=== PATIENT | male | born 1955 | race Caucasian/White ===

== ENCOUNTER 2019-03-12 11:19 | Outpatient (CLI) | payer BC, SELFPAY ==
--- NOTE | 2019-03-12 10:08 | DI.RAD_ITS ---
SYMPTOMS/DIAGNOSIS: LEFT KNEE PAIN STANDING ALIGNMENT: Standing AP views were performed from the pelvis through the ankles. The left knee shows severe degenerative changes of the medial femorotibial joint and varus angulation. There is an overall leg length discrepancy with the right femoral head projecting 13 mm superior to the right. The hip joint spaces show mild spurring but are well maintained. The ankle joints show medial spurring with no significant joint space narrowing. IMPRESSION: Severe degenerative changes in the medial femorotibial joint of the left knee and leg length discrepancy. LEFT KNEE: Weightbearing views were performed. Comparison is made with November,. There is now severe narrowing of the medial femorotibial joint with some flattening of the medial femoral condyle. There is periarticular spurring, increased from the previous exam. There is now varus angulation, as well as some lateral subluxation of the tibia with respect to the femur. There is spurring at the tibial spines, as well as patellofemoral joint. There are multiple small joint space loose bodies seen posterior to the femoral condyles. IMPRESSION: Interval worsening of degenerative changes of the medial femorotibial joint.
== END 2019-03-12 11:39 ==
PROVIDERS: PCP Family Medicine; Visit Provider Physician Assistant
DX: M25.562 Pain in left knee (principal)
CPT/HCPCS: 73560; 77073

== ENCOUNTER 2019-05-02 11:12 | Outpatient (CLI) | payer BC, SELFPAY ==
--- NOTE | 2019-05-02 10:31 | HPE_ITS ---
Assessment and Plan Assessment and plan (1) Primary osteoarthritis of left knee: Status: Chronic Assessment and plan: Plan: Educated patient and his on surgery covering surgical technique via models, recovery process, benefits and risks including but not limited to risk of infection, blood clot, damage to soft tissue/blood vessels/nerves in detail. After discussion patient gives verbal understanding of risks and elects to proceed with scheduling surgery. Patient had opportunity to have questions answered to their satisfaction. They will contact office if issues arise. Patient will continue to be scheduled for left total knee replacement with Dr. Tejeda. History of Present Illness Narrative: Mr. Leonard is a 63-year-old male who presents to clinic for pre- operative visit for scheduled left TKA. Original left knee pain started after a soccer injury ~30-40 years ago; denies any recent injury. Following his injuries he underwent 2 left knee arthroscopies by Dr. Alvarez with the second surgery approximately 30 years ago. He did get better after each surgery, but now over the last couple of years he has been experiencing worsening diffuse left knee p ain. Patient reports left knee pain is aggravated with all weightbearing activity. He continues to work in maintenance and has noticed increased difficulty with prolonged weightbearing, ascending as well as descending on ladders. States pain is most severely aggravated when descending on the ladder. He also has difficulty going up and down stairs, but it is not quite as bad as ladder. He rarely uses any OTC medication but will occasionally take Naproxen which helps slightly. Reports clicking with ROM; denies any locking sensation. Occasionally feels that the knee could give out when on the ladder; denies any falls. Due to his continued pain and known DJD he was offered surgical interven tion and elected to proceed. Pertinent Surgical Information Patient does have a listed severe allergy to penicillin. Upon discussion of allergy patient states he had a severe reaction when he was 8 years old after receiving penicillin. He is unable to report exact symptoms but recalls waking up in an ice bath at the hospital. Denies any other known drug allergies. Denies past medical history of: Hypertension, stroke, cardiac issues, angina, asthma, COPD, sleep apnea, renal issues, liver issues, hepatitis, gastrointestinal ulcers, bleeding disorders, seizures, migraines, anxiety, depression, diabetes, autoimmune disorders, thyroid issues Reports a reaction to the second left knee arthroscopy following anesthesia. Reports being beet red following the procedure ~30 years ago. Has had anesthesia since for endoscopy and colonoscopy without any issues. Denies prior complications from surgery or anesthesia. Review of Systems Constitutional Constitutional: Denies fever(s), Denies frequent falls and Denies headache(s) Eyes Eyes: Denies change in vision ENT Ears, Nose, Mouth, and Throat: Denies dizziness, Denies ear discharge, Denies headache(s), Denies epistaxis, Denies nasal discharge and Denies sore throat Cardiovascular Cardiovascular: Denies chest pain, Denies rapid heart rate, Denies irregular heart rhythm, Denies palpitations, Denies dyspnea, Denies dyspnea on exertion, Denies orthopnea, Denies paroxysmal nocturnal dyspnea and Denies slow heart rate Respiratory Respiratory: Denies cough, Denies dyspnea, Denies dyspnea on exertion and Denies wheezing Gastrointestinal Gastrointestinal: Denies abdominal pain, Denies melena, Denies hematochezia, Denies constipation, Denies diarrhea, Denies nausea and Denies vomiting Genitourinary Genitourinary: Denies hematuria, Denies dysuria and Denies urinary urgency Musculoskeletal Musculoskeletal: Reports as per HPI, Denies numbness and Denies tingling Neurologic Neurologic: Denies dizziness, Denies frequent falls, Denies headache(s), Denies numbness and Denies tingling Psychiatric Psychiatric: Denies anxiety and Denies depression Endocrine Endocrine: Denies palpitations Allergic/Immunologic Allergic/Immunologic: Denies wheezing [facility] Medical History Gardner's esophagus without dysplasia GERD (gastroesophageal reflux disease) Hearing loss (Chronic) slight Hiatal hernia History of colon polyps Obesity Surgical History EGD - MAC (01/15/17) Status post arthroscopy of knee (Acute) Left X2 Status post colonoscopy (Acute) Family History Mother No problems noted. Father Diabetes Heart disease Brother Personal history of malignant neoplasm PROSTATE Grandfather , UNKNOWN at age 50. No problems noted. Grandfather , UNKNOWN No problems noted. Grandmother Diabetes Grandmother , UNKNOWN No problems noted. Sister No problems noted. Sister No problems noted. Sister No problems noted. Sister No problems noted. Brother No problems noted. Son No problems noted. Son No problems noted. Daughter No problems noted. Social History (Updated 05/02/19 @ 10:45 by Nereyda Garcia) Smoking/Tobacco Use Status: Never Alcohol Intake: current Alcohol Intake frequency: a few times a month Alcohol type: wine and hard liquor Drug use: Never Substance use type: does not use Caregiver/Support person: No Household members: spouse Housing: house Do you need help understanding health information?: Rarely Pets and animals: Yes Pets and animals: cat(s), dog(s) and snake(s) Sexually active: Yes Do you think of yourself as: straight/heterosexual Current gender identity: male What is your relationship status?: How often do you talk on the phone with friends or family?: twice per week How often do you get together with friends or relatives?: three or more times per week How often do you attend hinduism or hoahaoism services?: decline to answer Do you belong to any clubs or organized social groups?: no Panel score (0-1 are the most socially isolated patients): 2 What type of physical activity do you participate in: walking Duration: 15-30 minutes/day Frequency: 5-6 times per week Alexa/Rastafari: None Special alexa needs: No Seatbelt use: sometimes Helmet use: No Drive intox or ride w/intox hazardous materials tanker driver: No Do you feel safe in your relationship?: Yes Meds Home Medications and Allergies Home Medications Medication Instructions Recorded Confirmed Type triamcinolone acetonide 0 TOPICAL HS #60 ml 11/24/16 05/02/19 History esomeprazole magnesium 40 mg 40 mg PO DAILY #90 tab-cap 12/03/18 05/02/19 Rx capsule,delayed release naproxen sodium [Aleve] 220 mg PO Q12H PRN 05/02/19 05/02/19 History Allergies Allergy/AdvReac Type Severity Reaction Status Date / Time Penicillins Allergy Severe Unverified 05/02/19 10:43 Exam Const General: cooperative and no acute distress [facility] Head: normal to inspection, normocephalic and atraumatic Ears: external ears normal General nose exam: external nose normal and no nasal discharge Face and sinus: face symmetric Mouth: oral mucosae normal, lip normal, tongue normal and moist mucous membranes Teeth and gingiva: dentition normal Throat: posterior oropharynx normal Eyes General: appearance normal, both eyes and all related structures Pupils: PERRL EOM: EOM intact bilaterally Neck Neck: trachea midline Carotids: normal carotid upstroke Lymphatic: no lymphadenopathy noted Resp Effort & Inspection: normal respiratory effort and able to speak in complete sentences Auscultation: clear to auscultation bilaterally, no rales, no rhonchi and no wheezes Cardio Heart Sounds: S1 normal, S2 normal and no murmurs Pulses: radial pulses present bilaterally GI Palpation: soft, no hepatosplenomegaly and nontender Auscultation: normal bowel sounds Skin General skin exam: no rashes or lesions noted Results Labs Result diagrams: 05/02/19 11:59 05/02/19 11:59
[2019-05-02 12:08] LABS: HCT 44.8 % (40.0-50.0); HGB 15.1 g/dL (13.5-17.5); Mean Corp. HGB Concentration 33.7 g/dL (32.0-36.0); Mean Corpuscular Hemoglobin 26.9 pg (27.0-33.0); Mean Corpuscular Volume 79.9 fL (80-95); Mean Platelet Volume 9.4 fL (8.0-11.0); Platelet Count 245 x1000/uL (130-400); RBC 5.61 m/cumm (4.50-6.00); RBC Distribution Width 15.1 % (11.8-14.1); White Blood Cell Count 7.33 k/cumm (4.4-10.8)
[2019-05-02 13:07] LABS: Anion Gap 11.5 mmol/L (3-11); BUN 17 mg/dL (7-18); CO2 25.5 mmol/L (21.0-32.0); CREATININE 0.72 mg/dL (0.70-1.30); Calcium 8.7 mg/dL (8.5-10.1); Chloride 106 mmol/L (98-107); Glucose 80 mg/dL (70-100); Potassium 4.3 mmol/L (3.5-5.1); Sodium 143 mmol/L (136-145)
== END 2019-05-02 11:32 ==
PROVIDERS: PCP Family Medicine; Visit Provider Student in an Organized Health Care Education/Training Program
DX: M25.562 Pain in left knee (principal); M17.12 Unilateral primary osteoarthritis, left knee; K21.9 Gastro-esophageal reflux disease without esophagitis; Z01.818 Encounter for other preprocedural examination; Z01.812 Encounter for preprocedural laboratory examination
CPT/HCPCS: 36415; 80048; 85027; NC

== ENCOUNTER 2019-05-07 07:02 | Observation (INO) | payer BC, SELFPAY ==
[2019-05-07] VITALS (14 sets, daily range): BP systolic 53–149; BP diastolic 35–100; PULSE 58–88; RESP 14–22; TEMP 36.2–37.4; O2SAT 94–98
[2019-05-07] MEDS: Acetaminophen 500 MG TAB 1000 MG PO ×3 (07:59→19:48)
[2019-05-07] MEDS: Gabapentin 300 MG CAP PO (08:00)
[2019-05-07] MEDS: Celecoxib 200 MG CAP 400 MG PO (08:00)
[2019-05-07] MEDS: Lactated Ringers 1,000 ML 80 ML IV ×3 (08:25→14:20)
[2019-05-07] MEDS: Bupivacaine 0.25% Pres-Free 10 ML VIAL (09:11)
[2019-05-07] MEDS: ceFAZolin 2 GM/50 ML BAG IVPB (09:45)
[2019-05-07] MEDS: Ketorolac 30 MG/ML VIAL (11:18)
[2019-05-07] MEDS: Bupivacaine 0.25% Pres-Free 30 ML VIAL (11:18)
[2019-05-07] MEDS: Normal Saline 20 ML VIAL (11:18)
[2019-05-07 13:15] LABS: HCT 40.7 % (40.0-50.0); HGB 13.6 g/dL (13.5-17.5)
[2019-05-07 13:25] LABS: Anion Gap 8.8 mmol/L (3-11); BUN 26 mg/dL (7-18); CO2 26.2 mmol/L (21.0-32.0); CREATININE 0.83 mg/dL (0.70-1.30); Calcium 8.3 mg/dL (8.5-10.1); Chloride 107 mmol/L (98-107); Glucose 141 mg/dL (70-100); Potassium 5.2 mmol/L (3.5-5.1); Sodium 142 mmol/L (136-145)
[2019-05-07 13:33] LABS: Troponin I < 0.05 ng/mL (0.00-0.06)
[2019-05-07] MEDS: Normal Saline Flush 10 ML SYR IV (14:16)
--- NOTE | 2019-05-07 14:35 | NUR.NOTE ---
Nursing Note: Patient arrived to med/surg from PACU via stretcher and admitted to room 214 at 1402
--- NOTE | 2019-05-07 16:13 | IN_ITS ---
Date of service: 05/07/19 Time of Service: 15:23 PT Notes Inpatient Physical Therapy Evaluation Date: 05/07/2019 Referring Doctor: Ronald Tejeda MD PT Orders: PT CONSULT: s/p L TKA Precautions: Fall. Standard. WBAT on R LE. Patient Profile/Admitting Diagnosis: Patient is a 63-year -ld man s/p L TKA on POD 0 due to unilateral primary osteoarthritis. 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 he is independent with all aspects of ADLs without the use of an assistive ambulatory device nor adaptive equipment. Equipment Owned/DME: Standard walker Subjective: Patient reports 2/10 pain but mostly numbness and only in the R ankle. He is agreeable to PT evaluation and denies headache, dizziness, and lightheadedness. He wants to go back to work at [employer]. Objective: General Observation: Patient is seen laying supine in bed with HOB elevated. He has an IV in the R UE and SAMEER stocking with anthromboembolic device on R LE. Cryocuff on R knee. MERARY wraps on R knee. Jose catheter in place. Mental Status: Alert and oriented x 4 Pain: 2/10 on R knee ROM: Right Lower Extremity: Hip flexion WFL. Hip abduction WFL. Knee flexion WFL. Ankle dorsiflexion WFL. Ankle plantarflexion WFL. Left Lower Extremity: Hip flexion WFL. Hip abduction WFL. Knee flexion 100 degrees. Knee extension -4 degrees. Ankle dorsiflexion WFL. Ankle plantarflexion WFL. Strength: Right Lower Extremity: Hip flexors 5/5. Hip abductors 5/5. Knee flexors 5/5. Knee extensors 5/5. Ankle dorsiflexors 5/5. Ankle plantarflexors 5/5. Left Lower Extremity:Hip flexors 3-/5. Hip abductors 5/5. Knee flexors 5/5. Knee extensors 3-/5. Ankle dorsiflexors 5/5. Ankle plantarflexors 5/5. Sensation: Numbness and tingling in R ankle and buttocks from anesthesia Bed Mobility/Transfers: Rolling Indepedent Supine to sit Independent Sit to supine Independent Sit to stand SBA Stand to sit SBA Bed to chair CGA Chair to bed CGA Gait: Mr. Leonard ambulated 5 steps forwards and backwards with FWW and CGA. He reported his R LE being funny and not totally stable, therefore ambulation activity was ceased. He exhibited a step to gait pattern with decreased step length, roma, and overall gait speed. Balance: Static Sitting: Normal Dynamic Sitting: Normal Static Standing: Fair Dynamic Standing: Fair Special Tests: Mobility Limitations Standardized Measure [facility] AM-PAC 6 clicks Basic Mobility Inpatient Short Form: Raw Score: 22 CMS Score: 26% Informed Consent/Education: Patient instructed in purpose of PT consult and plan of care. he was instrcuted regarding hourly performance of muscle setting exercises for bilateral quadriceps and gluteals along with ankle pumping. Assessment: Patient is a 63 year old male s/p L TKA POD 0 due to primary osteoarthritis. He was in mild pain at the time of evaluation and continued to have lingering effects of the spinal anesthetic in the R ankle. He ambulates well considering the short time since surgery. He is a motivated individual who is looking forward to returning home with his . He is also looking forward to returning to work after he recovers. His prognosis is good. Patient presents with clinical signs and symptoms consistent with current/admitting diagnoses that have resulted to mobility limitations, gait instability, generalized weakness, and impairment of motor control as demonstrated by the following impairment level findings: 1. Decreased strength to L LE major muscle groups 2. Impaired sitting/standing balance 3. Impaired activity tolerance 4. Limitation of joint range of motion in L knee flexion Impairments are contributing to the following functional limitations: 1. Increased dependence with transfers 2. Inability to safely ambulate without assistive device and physical assistance 3. Increase completion time for mobility ADL performance 4. Increased fall risk 5. Inability to negotiate steps alone safely Patient is assessed as a [id number] moderate complexity based on the following: History: Patient is a 63-year -ld man s/p L TKA on POD 0 due to unilateral primary osteoarthritis. Examination: Demonstrable impairment in strength, balance, and range of motion with underlying impairments and functional limitations as documented above Presentation: Evolving Decision Makin moderate complexity Goals: Goals X1 week 1. Sit-Stand independent 2. Stand-Sit independent 3. Bed-Chair independent 4. Chair-Bed independent 5. Independent gait on level surface with use of least restrictive device for at least 300 feet without report of pain nor dyspnea 6. Independent stair negotiation while holding onto bilateral rails for at least 10 steps without report of pain nor dyspnea 7. Independent with home exercise program 8. Good static and dynamic standing balance/tolerance Plan of Care/Treatment Plan: 1-2x/day, 7 days/week x 1 week. Plan of care has been reviewed with the PROCESS MACHINE OPERATOR providing the service under Physical Therapy direction. Initiate Physical Therapy intervention for strengthening, bed mobility, transfers, gait, stairs, balance training, use of assistive device. DISCHARGE RECOMMENDATIONS: Patient is to be discharged under the care of his after all of the above goals are met, and he is medically stable. TREATMENT CODE/TIME: 31868 x 23 minutes beginning at 15:23 PM. Thank you very much for this referral. Kin Rodríguez [facility] With the supervision of: Lainey Miranda PT, DPT, CLT [facility]
[2019-05-07] MEDS: Celecoxib 200 MG CAP PO (19:48)
[2019-05-07] MEDS: Aspirin E.C. 81 MG TABEC PO (19:48)
[2019-05-07] MEDS: HYDROmorphone 2 MG/ML VIAL 0.5 MG IVP (22:10)
--- NOTE | 2019-05-07 22:18 | ROE_ITS ---
Date of service: 05/07/19 Time of Service: 14:18 Operative Note Operative Note DATE OF PROCEDURE: 05/07/19 PRE-OP DIAGNOSIS: Left Knee DJD POST-OP DIAGNOSIS: same PROCEDURE: Left Total Knee Replacement SURGEON: Ronald Tejeda FURNITURE REFINISHER: Jordan Tovar ANESTHESIA: regional and spinal ESTIMATED BLOOD LOSS: 400 PATHOLOGY: none sent TOURNIQUET TIME: 28 COMPLICATIONS: None Patient was transported to: PACU Patient's condition: stable Implants: 1. Depuy Attune Posterior Stabilized Femoral Component, Size 9 2. Depuy Attune Fixed Platform Tibial Component, Size 7 3. Depuy Attune 9x6mm Fixed, Stabilized Poly 4. Depuy Attune Patellar Component, Size 38mm Indications: I have seen Juve in clinic for symptoms of left knee arthritis, confirmed with radiographic findings. Juve has exhausted nonoperative methods and was having significant limitations in daily function and desired better function and less pain. I discussed the technical details of a knee replacement. I explained the risks of the procedure to include, but not limited to, bleeding, infection, pain, stiffness, fracture, damage to nerves and vessels, damage to muscles and tendons, loosening, need for repeat procedure, blood clot and cardiopulmonary demise. Despite these risks, Juve elected to proceed. Findings: There was significant signs of arthritis throughout the knee. Notable arthritis and deformity of the medial compartment. Procedure Description: Juve was greeted in the preoperative holding area where the correct side was identified and marked. The consent was reviewed with the patient and signed. The history and physical was updated. All questions were answered. Preoperative mediacations were administered: Acetaminophen 1000mg, Celebrex 400mg, and Gabapentin 300mg. An adductor canal block was then administered by the anesthesia team in the PACU. Juve was taken back to the operating room. A spinal anesthestic was then administered. The patient was placed into the supine position on the operating room table. A nonsterile tourniquet was placed high onto the leg but only used for cementing. Posts were placed for positioning during the procedure. All bony prominences were well padded. Prophylactic antibiotics in the form of Cefazolin were administered. 1g of Tranxemic Acid was given intravenously within 30 minutes of incision. The left leg was then prepped with Chloraprep and draped in a standard fashion with impervious stockinette and extremity drape. A second prep with Chloraprep was performed prior to placing Ioband. A timeout to confirm correct identity, side and site, procedure, allergies, anesthesia, and medical concerns was performed. With the knee in some flexion, a midline incision was made overlying the knee. Full thickness skin flaps were raised once the extensor mechanism was encountered. These were raised medially and laterally. Any bleeding was controlled with electrocautery. Once the extensor mechanism was fully exposed, a medial parapatellar arthrotomy was performed in a flexed position. All bleeding from the arthrotomy and the geniculate arteries was coagulated. A medial subperiosteal peel was performed with electrocautery to the midcoronal plane. Due to the significant varus deformity the entire medial tibial plateau was exposed. The fat pad was removed while keeping the patellar tendon protected. The anterior distal femur synovium was removed for later visualization. The ACL and PCL were resected and the anterior horn of the lateral meniscus was transected. The knee was then flexed with the patella everted. Large osteophytes from the tibia were removed. Large osteophytes from the femur were removed. Using a step drill, and based on preoperative templating, the femoral canal was entered. This was done with a step drill without any difficulty. The intramedullary distal femoral cut guide was inserted, set to a 5 degree valgus cut and 9mm cut thickness. The distal femoral cut guide was then held in posi tion and pinned. With the soft tissues protected, the distal cut was performed. This was passed over a few times to ensure a planar cut. I then turned attention to the tibia. The extramedullary guide was placed onto the leg. The distal aspect was slid medial to adjust for position of center of ankle and stay in line with shaft of the tibia. Approximately 3-5 degrees of posterior slope was kept in the proximal cutting guide. The center of the guide was aligned with the PCL. The stylus was used to assess cut thickness. The medial side, most involved side, was set for a 2mm cut. This was then held in position and pinned into place with 2 additional pins and a cross pin for stability. The medial and lateral collateral ligaments were protected and the cut was performed. With this c ompleted, it was assessed and noted to be of appropriate dimensions. The guide was removed. A spacer block was inserted and the knee was brought into extension. The 6mm spacer block provided full extension, without hyperextension and with stability of both the medial and lateral collateral ligaments was assessed. The pins from the femur and the tibia were then removed. The distal femur was then sized. The anterior stylus was placed onto the lateral ridge of the anterior femur. This indicated a size 9 femur. The external rotation of the guide was adjusted to 3 degrees to match the epico ndylar axis, perpendicular to Keith?s line. The 4-in-1 cutting guide was the placed. The posterior medial femur cut was evaluated and appeared of good thickness. The spacer block was inserted underneath the cutting guide and stability was confirmed in 90 degrees of flexion. An morgan wing was used to confirm appropriate position of the anterior cut to avoid notching. This cutting guide was ensured to be flush on the cut surface and then pinned into place with headed pins. While protecting the soft tissues, quad tendon, and collateral ligaments, the anterior and posterior cuts were performed with a saw. The central two pins were removed and the posterior and anterior chamfers were cut next. The notch-cutting guide was placed. This was pinned to lateralize the femoral component as much as possible while keeping it flush on the cut surface. This was then pinned into position. A reciprocating saw was used to make the notch cut. A rasp smoothed the cut surfaces. A trial posterior stabilized femoral component was then inserted, impacted down to the cut surfaces, and the lug holes were drilled. A provisional trial tibial component was placed and the knee was brought through range of motion. There was noted to be excellent extension and flexion. There was no significant instability. The patella was tracking without thumbs. The tibial cut surface was fully exposed. The medial and lateral menisci were removed. The tibia was then sized as a 7. The tibia had been previously marked during trialing to correspond to the center of the tibial component to help with rotation. The trial was aligned to this jordan, approximately rotated to the medial 1/3rd of the tibial tubercle. The trial was pinned into place. The tibia was prepared with a reamer and a keel punch. The knee was then brought into extension and the patella was measured as 30mm. Using the patellar clamp and cut guide, this was resected to a flat surface with at least 13mm of thickness remaining. The size 38mm patella fit the best. This was oriented and then clamped into position. The lugs were drilled. The trial components were removed. The final components, except for the polyeth ylene were opened on the back table. The periosteal and capsular tissues, especially posteriorly, around the knee were then systematically injected with a periarticular cocktail consisting of 50cc 0.25% Marcaine, 30mg Ketorolac, 20cc of Exparal and 50cc of injectable saline. The tourniquet was then inflated to 275mmHg. The knee was thoroughly irrigated with a pulse lavage and dried. On the back table, with the implants opened, the cement was mixed. 2 batches of antibiotic laden cement were prepared with vacuum assistance. After the cement was ready it was placed on to the back side of the tibial component. A small amount was placed onto the posterior flange of the femur. Cement was manual pressurized and impregnated into the cut surface of the tibia. The tibial component was then inserted into the cut surface and impacted into position. Excess cement was removed and the component was reimpacted. Again, excess cement was removed and our attention was then turned to the femur. The femoral cut surface was once again dried and cement was manually impacted into the cut surface. The femoral component was lined with the lug holes and impacted. Excess cement was removed. It was ensured to be down against the cut surface. The trial polyethylene was then inserted and the leg was brought out into full extension for the duration of the cement curing process, approximately 15min. Cement was lastly manually impacted into the cut surface of the patella and the patellar button was clamped into position and held. During this process attention was turned to the gutters of the knee and for all interfaces for any excess cement. After the cement had finally cured, approximately 15min, the clamp was removed from the patella and the knee was taken through range of motion. A size 6mm polyethylene component provided the best range of motion and stability with less than 2mm gapping with medial and lateral stress and full extension without significant hyperextension. The patella was tracking with a no-thumbs technique. The trial poly was removed and once again the knee was checked for any loose, excess, or errant cement. The poly component was then inserted and impacted into position after cleaning and drying the tibial tray. The capsule was then reapproximated with a No. 1 Vicryl at multiple locations. The capsule was finally closed with a No. 2 Stratafix, barbed suture. The tourniquet was then released and the arthrotomy appeared watertight without significant bleeding. The second dosing of 1g TXA was started. Deep tissues were then reapproximated with 0 Vicryl and 2-0 Vicryl. The skin was closed with a running 3-0 Monocryl in a subcuticular fashion. This was reinforced with skin glue. A Mepilex silver dressing was applied along with a [id number] MERARY wrap. A CryoCuff was applied. Juve was transferred to the hospital bed without difficulty an suffering no apparent complication. Juve has a good prognosis. Physical therapy will start today and without restrictions, weight-bearing as tolerated. Aspirin 81mg BID will be used for DVT prophylaxis.
[2019-05-08 00:30] VITALS: BP 127/70; PULSE 70; RESP 18; TEMP 36.6; O2SAT 96
[2019-05-08] MEDS: Lactated Ringers 1,000 ML 80 ML IV (03:29)
[2019-05-08 03:30] VITALS: BP 116/74; PULSE 62; RESP 16; TEMP 36.4; O2SAT 98
[2019-05-08 07:28] VITALS: BP 135/83; PULSE 67; RESP 17; TEMP 36.6; O2SAT 95
[2019-05-08] MEDS: Aspirin E.C. 81 MG TABEC PO (08:01)
[2019-05-08] MEDS: Esomeprazole 40 MG CAPCR PO (08:01)
[2019-05-08] MEDS: Celecoxib 200 MG CAP PO (08:01)
[2019-05-08] MEDS: Acetaminophen 500 MG TAB 1000 MG PO (08:02)
[2019-05-08] MEDS: Normal Saline Flush 10 ML SYR IV (08:03)
--- NOTE | 2019-05-08 08:09 | W.PM.DS.N ---
Date of service: 05/08/19 Time of Service: 08:09 DS: Diagnosis Discharge Diagnosis (1) Primary osteoarthritis of left knee: Status: Chronic Discharge Plan Disposition Patient Disposition: HOME Condition: Good Discharge Details Reason For Visit: LEFT KNEE DJD Admit Date/Time: 05/07/19 07:02 Admit Provider: Ronald Tejeda Attending Provider: Ronald Tejeda Primary Care Provider: Juve [facility] Hospital Course Hospital Course: Patient was admitted to the medical/surgical floor following the procedure. It was tolerated well without any notable medical, surgical, or anesthetic complications. Mobilization began postoperatively. The zimmerman catheter was removed and voiding spontaneously. Vitals were stable. Physical therapy worked with the patient and was cleared for discharge home. No acute medical issues. Home Meds and New Rx's Prescriptions: New acetaminophen 500 mg tablet 1,000 mg PO Q8H PRN (Reason: pain) Qty: 90 RF: 3 celecoxib 200 mg capsule 200 mg PO BID PRN (Reason: pain) Qty: 60 RF: 1 aspirin 81 mg tablet,delayed release (DR/EC) 81 mg PO BID Qty: 60 RF: 0 gabapentin 300 mg capsule 300 mg PO QHS Qty: 7 RF: 0 oxycodone 5 mg tablet 5 mg PO Q4H Qty: 18 RF: 0 Continued esomeprazole magnesium [Nexium] 40 mg capsule,delayed release(DR/EC) 40 mg PO DAILY Qty: 90 RF: 4 Discontinued triamcinolone acetonide 60 ML lotion 0 Topical HS Qty: 60 RF: 3 naproxen sodium [Aleve] 220 mg Capsule 220 mg PO Q12H PRNRF: 0 Discharge Instructions Additional Instructions: Dr. Tejeda?s Total Knee Discharge Instructions Activity: The most important activity is to walk. You should try to take short walks a few times a day. It is important that when resting you work on keeping the knee straight. Avoid putting a pillow behind the knee as this will encourage flexion. Work on range of motion exercises as provided by Physical Therapy. - Start outpatient physical therapy within 2 weeks. - You should wear the SAMEER hose on both legs for 2 weeks. Dressing: Keep the surgical dressing in place for at least one week. After the first week it may be removed and replace with light gauze and tape or nothing. It may get wet after 3 days but avoid soaking the dressing. If it gets wet, just lightly pat dry. Medications: - You should take Tylenol and anti-inflammatory Celebrex as your primary pain control medications - You have been prescribed a stronger pain medication Oxycodone for breakthrough pain, take as needed as prescribed. - You should continue your stomach acid reduction agent Esomeprazole to help reduce stomach acid and reflux. - You will be taking Aspirin 81mg twice a day for DVT prevention unless instructed otherwise. - If you have constipation you should take Colace or Miralax (both [id number]). It takes most people 3-4 days to have a bowel movement. Follow-up: 2 weeks Referrals: Ronald Tejeda MD [ [facility] STAFF PHYSICIAN] - Activity:: Activity as Tolerated Equipment/Supplies:: Walker Diet:: As Tolerated Discharge Orders Discharge Orders: Discharge Order (Routine); Ordered 05/08/19 Ordered By: Ronald Tejeda DS: Summary Status at Discharge Functional status at discharge: uses cane/walker Overall status at discharge: patient is progressing back to baseline Mental Status: mental status grossly normal Speech and Movement: speech and movement normal Mood: congruent mood Affect: normal affect Exam Psych Mental Status: mental status grossly normal Speech and Movement: speech and movement normal Mood: congruent mood Affect: normal affect DS: Data Vitals/I&O Vitals and I&O: Vital Signs Temperature 36.4 C L 05/08/19 03:30 Temperature Source Tympanic 05/08/19 03:30 Pulse 62 05/08/19 03:30 Pulse Rhythm Regular 05/08/19 03:20 Respiratory Rate 16 05/08/19 03:30 Respiratory Effort Non-Labored 05/08/19 03:20 Respiratory Depth Normal 05/08/19 03:20 Respiratory Pattern Normal 05/08/19 03:20 Blood Pressure 116/74 05/08/19 03:30 Pulse Oximetry 98 05/08/19 03:30 Respiratory End-tidal CO2 38 05/07/19 13:15 Oxygen Delivery Method Room Air 05/08/19 03:30 Oxygen Flow Rate 0 05/08/19 03:30 Pain Level 2 05/08/19 08:02 Intake & Output 05/07/19 05/07/19 05/08/19 11:59 23:59 11:59 Intake Total 870 / 2170.500 1300.500 / 2170.500 940 / 940 Output Total 875 / 1625 750 / 1625 650 / 650 Balance -5 / 545.500 550.500 / 545.500 290 / 290 Weight 114.1 kg Intake: IV 870 / 1610.500 740.500 / 1610.500 940 / 940 Oral 560 / 560 Output: Urine 375 / 1125 750 / 1125 650 / 650 Estimated Blood Loss 500 / 500 Other: Urine Color Yellow Light Mariana Yellow Urine Appearance Clear Clear Clear Emesis Description None Data Completed and Pending Labs on day of discharge: Labs from last 24 hours 05/07/19 05/07/19 13:00 13:00 Hgb 13.6 Hct 40.7 Sodium 142 Potassium 5.2 H Chloride 107 Carbon Dioxide 26.2 Anion Gap 8.8 BUN 26 H Creatinine 0.83 Estimated GFR/1.73 m2 >= 60.00 Glucose 141 H Calcium 8.3 L Troponin I < 0.05 PFSH Medical History 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 Father Diabetes Heart disease Brother Personal history of malignant neoplasm PROSTATE Grandfather , UNKNOWN at age 50. No problems noted. Grandfather , UNKNOWN No problems noted. Grandmother Diabetes Grandmother , UNKNOWN No problems noted. Sister No problems noted. Sister No problems noted. Sister No problems noted. Sister No problems noted. Brother No problems noted. Son No problems noted. Son No problems noted. Daughter No problems noted. Social History Smoking/Tobacco Use Status: Never Alcohol Intake: current Alcohol Intake frequency: a few times a month Alcohol type: wine and hard liquor Drug use: Never Substance use type: does not use Caregiver/Support person: No Household members: spouse Housing: house Do you need help understanding health information?: Rarely Pets and animals: Yes Pets and animals: cat(s), dog(s) and snake(s) Sexually active: Yes Do you think of yourself as: straight/heterosexual Current gender identity: male What is your relationship status?: How often do you talk on the phone with friends or family?: twice per week How often do you get together with friends or relatives?: three or more times per week How often do you attend episcopal or pentecostal services?: decline to answer Do you belong to any clubs or organized social groups?: no Panel score (0-1 are the most socially isolated patients): 2 What type of physical activity do you participate in: walking Duration: 15-30 minutes/day Frequency: 5-6 times per week Alexa/Shinto: None Special alexa needs: No Seatbelt use: sometimes Helmet use: No Drive intox or ride w/intox stunt driver: No Do you feel safe in your relationship?: Yes
--- NOTE | 2019-05-08 10:07 | PT.INTREAT ---
Date of service: 05/08/19 Time of Service: 10:07 PT Notes Inpatient Physical Therapy Treatment Note [facility] Date: 05/08/19 PRECAUTIONS: Fall, WBAT L SUBJECTIVE: Juve states that he is ready to return to home today. OBJECTIVE: PAIN: No c/o pain BED MOBILITY/TRANSFERS Supine-sit: I with HOB flat Sit-supine: I with HOB flat Sit-stand: I Stand-sit: I GAIT Assistive Device: FWW Weight bearing: WBAT L Assist: S Distance: 100' x2 THEREX: Patient completed a LE strengthening and stabilization program, in a supine position, as per flow sheet. He ends with cryocuff to L knee. STAIRS:Up/down 3x4 and 2x6 using 1 rail/SPC and a step-to pattern with supervision ASSESSMENT: Patient tolerated session well without complaint. He was able to tolerate a progression in gait distance with FWW support and supervision. He was also able to demonstrate independence with bed mobility and transfers at this time. PLAN: As per primary PT TREATMENT CODE/TIME: 25 minutes; 89808, [id number]
--- NOTE | 2019-05-08 15:37 | INDS_ITS ---
Date of service: 05/08/19 PT Notes Inpatient Physical Therapy Discharge Summary Dates: 05/08/2019 Dates of Service: 05/07/2019 through 05/08/2019 Referring Doctor: Ronald Tejeda MD PT Orders: PT CONSULT: s/p L TKA Precautions: Fall. Standard. WBAT on R LE. Patient Profile/Admitting Diagnosis: Patient is a 63-year-old man s/p L TKA on POD 0 due to unilateral primary osteoarthritis. 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 He works as a maintenance section crews activities clerk at [employer]. he is independent with all aspects of ADLs without the use of an assistive ambulatory device nor adaptive equipment. Equipment Owned/DME: Standard walker Subjective: NT Objective: General Observation: NT Mental Status: NT Pain: NT ROM: Right Lower Extremity: Hip flexion WFL. Hip abduction WFL. Knee flexion WFL. Ankle dorsiflexion WFL. Ankle plantarflexion WFL. Left Lower Extremity: Hip flexion WFL. Hip abduction WFL. Knee flexion 100 degrees. Knee extension -4 degrees. Ankle dorsiflexion WFL. Ankle plantarflexion WFL. Strength: Right Lower Extremity: Hip flexors 5/5. Hip abductors 5/5. Knee flexors 5/5. Knee extensors 5/5. Ankle dorsiflexors 5/5. Ankle plantarflexors 5/5. Left Lower Extremity:Hip flexors 3-/5. Hip abductors 5/5. Knee flexors 5/5. Knee extensors 3-/5. Ankle dorsiflexors 5/5. Ankle plantarflexors 5/5. Sensation: Numbness and tingling in R ankle and buttocks from anesthesia Bed Mobility/Transfers: Rolling Indepedent Supine to sit Independent Sit to supine Independent Sit to stand Independent Stand to sit Independent Bed to chair Independent Chair to bed Independent Gait: Mr. Leonard ambulated 100 steps forwards and backwards with FWW and roth pervision. He also tolerated three 4-inch steps and two 6-inch steps using step- to gait pattern while holding onto 1 rail. Balance: Static Sitting: Normal Dynamic Sitting: Normal Static Standing: Fair Dynamic Standing: Fair Assessment: Patient is a 63 year old male s/p L TKA POD 0 due to primary osteoarthritis. He was in mild pain at the time of evaluation and continued to have lingering effects of the spinal anesthetic in the R ankle. He ambulates well considering the short time since surgery. He is a motivated individual who is looking forward to returning home with his . He is also looking forward to returning to work after he recovers. His prognosis is good. Patient presents with clinical signs and symptoms consistent with current/admitting diagnoses that have resulted to mobility limitations, gait instability, generalized weakness, and impairment of motor control as demonstrated by the following impairment level findings: 1. Decreased strength to L LE major muscle groups 2. Impaired sitting/standing balance 3. Impaired activity tolerance 4. Limitation of joint range of motion in L knee flexion Impairments are contributing to the following functional limitations: 1. Increased dependence with transfers 2. Inability to safely ambulate without assistive device and physical assistance 3. Increase completion time for mobility ADL performance 4. Increased fall risk 5. Inability to negotiate steps alone safely Goals: Goals X1 week 1. Sit-Stand independent MET 2. Stand-Sit independent MET 3. Bed-Chair independent MET 4. Chair-Bed independent MET 5. Independent gait on level surface with use of least restrictive device for at least 300 feet without report of pain nor dyspnea NOT MET 6. Independent stair negotiation while holding onto bilateral rails for at least 10 steps without report of pain nor dyspnea NOT MET 7. Independent with home exercise program NOT MET 8. Good static and dynamic standing balance/tolerance NOT MET DISCHARGE RECOMMENDATIONS: Patient is to be discharged under the care of his after all of the above goals are met, and he is medically stable. TREATMENT CODE/TIME: MN Thank you very much for this referral. Lainey Miranda PT, DPT, CLT [facility]
== END 2019-05-08 11:23 | disposition home or self-care (01) ==
LOC: MS 14:49 → PDS 14:50 → MS 14:52
PROVIDERS: Nurse Anesthetist, Certified Registered; Admitting Provider Student in an Organized Health Care Education/Training Program; PCP Family Medicine; Visit Provider Student in an Organized Health Care Education/Training Program
PROC: 0SRC0J9 Replacement of Right Knee Joint with Synthetic Substitute, Cemented, Open Approach (ICD-10-PCS; CPT 27447; principal; 2019-05-07 09:15)
DX: M17.12 Unilateral primary osteoarthritis, left knee (principal); M25.562 Pain in left knee; Z96.652 Presence of left artificial knee joint; M21.161 Varus deformity, not elsewhere classified, right knee; Z88.0 Allergy status to penicillin; K21.9 Gastro-esophageal reflux disease without esophagitis; E66.9 Obesity, unspecified; Z68.36 Body mass index [BMI] 36.0-36.9, adult
CPT/HCPCS: 27447; 76942; 80048; 97110; 97161; 97530; NC; 84484; 85014; 85018; 93005; 93010; G0378; J0690; J1100; J1885; J2250; J2405

== ENCOUNTER 2019-05-22 14:06 | Outpatient (CLI) | payer BC, SELFPAY ==
--- NOTE | 2019-05-22 13:50 | DI.RAD_ITS ---
EXAM: XR STANDING ALIGNMENT CLINICAL HISTORY: 1ST POST OP TECHNIQUE: COMPARISON: XR standing alignment from 03/12/2019 FINDINGS: Standing alignment view was obtained. Left total knee replacement noted in position. Minimal degene rative changes of the hips noted bilaterally. IMPRESSION:
--- NOTE | 2019-05-22 13:52 | DI.RAD_ITS ---
EXAM: XR KNEE LT 1V CLINICAL HISTORY: 1ST POST OP TECHNIQUE: COMPARISON: XR knee LT 2V AP,lat from 03/12/2019 FINDINGS: Single lateral view was obtained and shows total knee joint replacement in position postoperatively. IMPRESSION:
== END 2019-05-22 14:26 ==
PROVIDERS: PCP Family Medicine; Visit Provider Student in an Organized Health Care Education/Training Program
DX: Z96.652 Presence of left artificial knee joint (principal); Z47.1 Aftercare following joint replacement surgery; M16.0 Bilateral primary osteoarthritis of hip
CPT/HCPCS: 73560; 77073

== ENCOUNTER 2019-07-17 14:24 | Outpatient (CLI) | payer BC, SELFPAY ==
--- NOTE | 2019-07-17 14:08 | DI.RAD_ITS ---
EXAM: XR LUMBAR SPINE AP, LAT CLINICAL HISTORY: RLE LEG PAIN, ?LUMBAR ARTHRITIS TECHNIQUE: Three views were obtained. COMPARISON: No exams were available for comparison FINDINGS: There is a slight left convex lumbar scoliosis. Mild degenerative changes of the SI joints noted. T here is narrowing of the intervertebral disc space at L5-S1 with probable bridging osteophytes anteri valeria. Otherwise intervertebral disc spaces appear fairly well maintained. Moderate hypertrophic spu rring of facet joints is noted in the lower lumbar region. Mild endplate hypertrophic changes also s een throughout the lumbar region. No compression fracture seen. IMPRESSION: Degenerative changes of the lumbar spine as described above.
== END 2019-07-17 14:44 ==
PROVIDERS: PCP Family Medicine; Visit Provider Student in an Organized Health Care Education/Training Program
DX: M54.16 Radiculopathy, lumbar region (principal); M79.661 Pain in right lower leg; M53.3 Sacrococcygeal disorders, not elsewhere classified; M51.17 Intervertebral disc disorders with radiculopathy, lumbosacral region; M47.27 Other spondylosis with radiculopathy, lumbosacral region
CPT/HCPCS: 72100

== ENCOUNTER 2019-07-31 02:01 | Outpatient (CLI) | payer BC, SELFPAY ==
--- NOTE | 2019-07-31 09:30 | DI.MRI_ITS ---
EXAM: MR LUMBAR SPINE WO CLINICAL HISTORY: eval RLE radiculopathy, ?L5 M54.16 RADICULOPATHY. TECHNIQUE: Multiplanar multisequence MRI was performed. COMPARISON: No exams were available for comparison FINDINGS: MR examination of the lumbosacral spine was performed according to the usual protocol. No significan t bony signal abnormality seen. Incidental note is made bilateral renal cysts. No evidence of a bon y central canal spinal stenosis or neural foraminal stenosis. The conus medullaris appears intact. No significant findings from T11-12 through L3-4. At L4-5 there is a large broad-based disc herniation which is most prominent right para central but w hich extends from left paracentral to right lateral with impingement on and displacement of L5 and S1 nerve roots at this level. At L5-S1 there is loss of disc signal and disc height consistent with disc degeneration without evide nce of disc herniation. IMPRESSION: Large broad-based disc herniation most prominent right paracentral at L4-5 with associated neural imp ingement as described above.
== END 2019-07-31 02:21 ==
PROVIDERS: PCP Family Medicine; Visit Provider Student in an Organized Health Care Education/Training Program
DX: M54.16 Radiculopathy, lumbar region (principal); M51.16 Intervertebral disc disorders with radiculopathy, lumbar region
CPT/HCPCS: 72148

== ENCOUNTER 2019-08-21 15:18 | Outpatient (REF) | payer BC, SELFPAY ==
--- NOTE | 2019-08-21 13:30 | NASALBX_PTH ---
PATIENT: Juve Leonard LOC: [facility] U#:[id number] AGE/SX: 63/M ROOM: RE08/21/[address]: Marcin Osuna MD : [id number] BED: DIS: 08/21/2019 SPEC #: [id number] RECD: 08/21/19 18:17 STATUS: JULEE REQ #: [id number] GREG: 08/21/19 13:[address]: Marcin Osuna DEPT: Surgical Specimen RECD BY: Nohemi Alfaro ENTERED: 08/21/19 18:18 SP TYPE: NASALBX OTHR DR: Juve Peace MD Tissues: 1 - MUCOSA, NOS Procedures: GROSS AND MICRO LEVEL 4 Comments: [id number]
== END 2019-08-21 15:38 ==
LOC: LBN 15:18
PROVIDERS: PCP Family Medicine; Visit Provider Otolaryngology
DX: D23.39 Other benign neoplasm of skin of other parts of face (principal)
CPT/HCPCS: 88305

== ENCOUNTER 2020-12-10 09:48 | Outpatient (CLI) | payer BC, SELFPAY ==
[2020-12-10 13:24] LABS: Anion Gap 8.8 mmol/L (3-11); BUN 22 mg/dL (7-18); CO2 28.2 mmol/L (21.0-32.0); CREATININE 0.8 mg/dL (0.70-1.30); Calcium 9.2 mg/dL (8.5-10.1); Calculated LDL 119 mg/dL (<100); Chloride 106 mmol/L (98-107); Cholesterol 187 mg/dL (<200); Glucose 92 mg/dL (74-106); HDL Cholesterol 48 mg/dL (40-60); Potassium 4.5 mmol/L (3.5-5.1); Sodium 143 mmol/L (136-145); Triglyceride 100 mg/dL (<150)
[2020-12-10 13:40] LABS: Hemoglobin A1C 5.9 % (<5.7)
[2020-12-10 17:00] LABS: PSA, Screening 0.3 ng/mL (0.0-4.5)
== END 2020-12-10 09:49 | disposition home or self-care (01) ==
PROVIDERS: PCP Nurse Practitioner Family; Visit Provider Nurse Practitioner Family
DX: E78.5 Hyperlipidemia, unspecified (principal); I10 Essential (primary) hypertension; Z00.00 Encounter for general adult medical examination without abnormal findings; Z12.5 Encounter for screening for malignant neoplasm of prostate
CPT/HCPCS: 36415; 80048; 80061; 84153; 83036

== ENCOUNTER 2021-12-12 10:00 | Outpatient (CLI) | payer BC, SELFPAY ==
[2021-12-12 13:07] LABS: ALT 45 U/L (16-63); AST 31 U/L (15-37); Albumin 4.1 g/dL (3.4-5.0); Alkaline Phosphatase 79 U/L (46-116); Anion Gap 9.2 mmol/L (3-11); BUN 21 mg/dL (7-18); Bilirubin, Total 0.6 mg/dL (0.2-1.0); CO2 27.8 mmol/L (21.0-32.0); CREATININE 0.8 mg/dL (0.70-1.30); Calcium 8.8 mg/dL (8.5-10.1); Chloride 105 mmol/L (98-107); Glucose 92 mg/dL (74-106); Potassium 4.9 mmol/L (3.5-5.1); Sodium 142 mmol/L (136-145); Total Protein 7.4 g/dL (6.4-8.2)
[2021-12-12 13:12] LABS: Hemoglobin A1C 5.6 % (<5.7)
[2021-12-12 13:18] LABS: Calculated LDL 112 mg/dL (<100); Cholesterol 178 mg/dL (<200); HDL Cholesterol 50 mg/dL (40-60); Triglyceride 81 mg/dL (<150)
[2021-12-12 23:10] LABS: PSA, Screening 0.3 ng/mL (<=4.5)
[2021-12-13 09:58] LABS: Hepatitis C Ab w Rflx HCV PCR Negative (Negative)
[2021-12-13 09:59] LABS: HIV-1/2 Ag & Ab Screen Negative (Negative)
== END 2021-12-12 10:01 | disposition home or self-care (01) ==
LOC: LOS 10:01
PROVIDERS: PCP Nurse Practitioner Family; Visit Provider Family Medicine
DX: Z11.4 Encounter for screening for human immunodeficiency virus [HIV]; Z11.59 Encounter for screening for other viral diseases; Z12.5 Encounter for screening for malignant neoplasm of prostate; Z00.00 Encounter for general adult medical examination without abnormal findings
CPT/HCPCS: 36415; 80053; 80061; 84153; 86803; 87389; 83036

== ENCOUNTER 2022-12-14 09:00 | Outpatient (CLI) | payer MEDICARE, BC, SELFPAY ==
[2022-12-14 12:44] LABS: Anion Gap 8.2 mmol/L (3-11); BUN 21 mg/dL (7-18); CO2 28.8 mmol/L (21.0-32.0); CREATININE 0.8 mg/dL (0.70-1.30); Calcium 9.1 mg/dL (8.5-10.1); Calculated LDL 120 mg/dL (<100); Chloride 106 mmol/L (98-107); Cholesterol 185 mg/dL (<200); Estimated GFR 98.83 (mL/min/1.73m2); Glucose 104 mg/dL (74-106); HDL Cholesterol 55 mg/dL (40-60); Potassium 4.2 mmol/L (3.5-5.1); Sodium 143 mmol/L (136-145); Triglyceride 50 mg/dL (<150)
[2022-12-14 22:18] LABS: PSA, Screening 0.3 ng/mL (<=4.5)
== END 2022-12-14 09:01 | disposition home or self-care (01) ==
LOC: LOS 09:01
PROVIDERS: PCP Nurse Practitioner Family; Visit Provider Nurse Practitioner Family
DX: I10 Essential (primary) hypertension (principal); E78.5 Hyperlipidemia, unspecified; Z12.5 Encounter for screening for malignant neoplasm of prostate
CPT/HCPCS: 36415; 80048; 80061; 84153

== ENCOUNTER 2023-12-20 08:38 | Outpatient (CLI) | payer MEDICARE, BC, SELFPAY ==
[2023-12-20 12:43] LABS: Hemoglobin A1C 5.8 % (<5.7)
[2023-12-20 13:02] LABS: ALT 43 U/L (16-63); AST 25 U/L (15-37); Albumin 4.3 g/dL (3.4-5.0); Alkaline Phosphatase 78 U/L (46-116); Anion Gap 3.5 mmol/L (3-11); BUN 25 mg/dL (7-18); Bilirubin, Total 0.7 mg/dL (0.2-1.0); CO2 26.5 mmol/L (21.0-32.0); CREATININE 0.8 mg/dL (0.70-1.30); Calcium 9.3 mg/dL (8.5-10.1); Calculated LDL 67 mg/dL (<100); Chloride 108 mmol/L (98-107); Cholesterol 133 mg/dL (<200); Estimated GFR 97.61 (mL/min/1.73m2); Glucose 115 mg/dL (74-106); HDL Cholesterol 53 mg/dL (40-60); Potassium 3.9 mmol/L (3.5-5.1); Sodium 138 mmol/L (136-145); TSH (W/Ref FT4) 1.53 uIU/mL (0.36-3.74); Triglyceride 67 mg/dL (<150)
[2023-12-20 19:31] LABS: PSA, Screening 0.2 ng/mL (<=4.5)
== END 2023-12-20 08:39 | disposition home or self-care (01) ==
LOC: LOS 08:39
PROVIDERS: PCP Nurse Practitioner Family; Referring Provider Nurse Practitioner Family; Visit Provider Nurse Practitioner Family
DX: E78.5 Hyperlipidemia, unspecified (principal); R73.03 Prediabetes; I10 Essential (primary) hypertension; Z12.5 Encounter for screening for malignant neoplasm of prostate; Z00.00 Encounter for general adult medical examination without abnormal findings
CPT/HCPCS: 36415; 80053; 80061; 84153; 83036; 84443

== ENCOUNTER 2024-12-25 09:25 | Outpatient (CLI) | payer MEDICARE, SELFPAY ==
[2024-12-25 12:40] LABS: Hemoglobin A1C 5.7 % (<5.7)
[2024-12-25 12:42] LABS: ALT 38 U/L (16-63); AST 27 U/L (15-37); Albumin 4.3 g/dL (3.4-5.0); Alkaline Phosphatase 86 U/L (46-116); Anion Gap 12.8 mmol/L (3-11); BUN 21 mg/dL (7-18); Bilirubin, Total 0.7 mg/dL (0.2-1.0); CO2 25.2 mmol/L (21.0-32.0); CREATININE 0.6 mg/dL (0.70-1.30); Calcium 9.5 mg/dL (8.5-10.1); Calculated LDL 65 mg/dL (<100); Chloride 104 mmol/L (98-107); Cholesterol 128 mg/dL (<200); Glucose 113 mg/dL (74-106); HDL Cholesterol 50 mg/dL (>or=40); Potassium 4.6 mmol/L (3.5-5.1); Sodium 142 mmol/L (136-145); Total Protein 7.8 g/dL (6.4-8.2); Triglyceride 68 mg/dL (<150)
[2024-12-25 19:05] LABS: PSA, Screening 0.3 ng/mL (<=4.5)
== END 2024-12-25 09:26 | disposition home or self-care (01) ==
LOC: LOS 09:26
PROVIDERS: PCP Nurse Practitioner Family; Referring Provider Nurse Practitioner Family; Visit Provider Nurse Practitioner Family
DX: Z13.1 Encounter for screening for diabetes mellitus (principal); R73.03 Prediabetes; I10 Essential (primary) hypertension; Z13.220 Encounter for screening for lipoid disorders; E78.5 Hyperlipidemia, unspecified; Z12.5 Encounter for screening for malignant neoplasm of prostate
CPT/HCPCS: 36415; 80053; 80061; 84153; 83036